=== PATIENT | male | born 1930 | race Caucasian/White ===

== ENCOUNTER → 2017-03-13 | Outpatient (REF) | payer MEDICARE, OTHER ==
[2017-03-13 19:13] LABS: ALBUMIN 3.7 GM/DL (3.2-5.2); ALBUMIN/GLOBULIN RATIO 1.09 (1.00-1.93); ALKALINE PHOSPHATASE 63 U/L (45-117); ALT/SGPT 41 U/L (12-78); ANION GAP 6 MEQ/L (8-16); AST/SGOT 32 U/L (15-37); BILIRUBIN,TOTAL 0.4 MG/DL (0.2-1.0); BLOOD UREA NITROGEN 19 MG/DL (7-18); CALCIUM LEVEL 8.5 MG/DL (8.8-10.2); CARBON DIOXIDE LEVEL 29 MEQ/L (21-32); CHLORIDE LEVEL 106 MEQ/L (98-107); CREATININE FOR GFR 0.87 MG/DL (0.70-1.30); GLOMERULAR FILTRATION RATE > 60.0 (>35); GLUCOSE, FASTING 129 MG/DL (83-110); POTASSIUM SERUM 4.7 MEQ/L (3.5-5.1); SODIUM LEVEL 141 MEQ/L (136-145); TOTAL PROTEIN 7.1 GM/DL (6.4-8.2)
== END ==
LOC: M LABDRWCV 16:18
PROVIDERS: ATTEND Physician Assistant
DX: E78.00 Pure hypercholesterolemia, unspecified (principal); I10 Essential (primary) hypertension

== ENCOUNTER 2017-06-01 19:34 | Emergency (ER) | payer MEDICARE, BC, OTHER ==
[~2017-06-01] VITALS: Ht 175.3 cm; Wt 99.1 kg
[2017-06-01] MEDS ORDERED: LYRI75CA (19:46)
[2017-06-01] MEDS ORDERED: ATOR1TAB19 (19:46)
[2017-06-01] MEDS ORDERED: RAMI25CA (19:46)
[2017-06-01] MEDS ORDERED: FLOM5CAP (19:46)
[2017-06-01] MEDS ORDERED: NITR0.4S14 SL (19:46)
[2017-06-01] MEDS ORDERED: FINA5TAB2 (19:46)
[2017-06-01] MEDS ORDERED: CARV12.5 (19:46)
[2017-06-01] MEDS ORDERED: BENA25TA10 PO (22:57)
--- NOTE | 2017-06-01 23:00 | REPUSA ---
Clinical history: Pain, swelling. Findings: The right common femoral, superficial femoral, popliteal, and other deep venous structures compress normally and demonstrate normal color Doppler flow. Normal venous waveforms with augmentatio n are seen. Impression: No evidence of deep vein thrombosis in the right femoral popliteal venous system.
[2017-06-01 23:20] VITALS: BP 132/73
== END 2017-06-01 23:21 | disposition home or self-care (01) ==
LOC: M ED 19:34
DX: R22.41 Localized swelling, mass and lump, right lower limb (principal); I25.10 Atherosclerotic heart disease of native coronary artery without angina pectoris; I10 Essential (primary) hypertension; Z91.030 Bee allergy status; Z96.81 Presence of artificial skin; Z87.891 Personal history of nicotine dependence; Z79.899 Other long term (current) drug therapy

== ENCOUNTER → 2017-09-22 | Outpatient (REF) | payer MEDICARE, BC, OTHER ==
[~2017-09-22] MED LIST: ATOR1TAB19; BENA25TA10 PO; CARV12.5; FINA5TAB2; FLOM5CAP; LYRI75CA; NITR0.4S14 SL; RAMI25CA
[2017-09-22 20:16] LABS: ALBUMIN 3.8 GM/DL (3.2-5.2); ALBUMIN/GLOBULIN RATIO 1.09 (1.00-1.93); ALKALINE PHOSPHATASE 61 U/L (45-117); ALT/SGPT 36 U/L (12-78); ANION GAP 5 MEQ/L (8-16); AST/SGOT 24 U/L (7-37); BILIRUBIN,TOTAL 0.5 MG/DL (0.2-1.0); BLOOD UREA NITROGEN 19 MG/DL (7-18); CALCIUM LEVEL 8.9 MG/DL (8.8-10.2); CARBON DIOXIDE LEVEL 30 MEQ/L (21-32); CHLORIDE LEVEL 105 MEQ/L (98-107); CHOLESTEROL LEVEL 135 MG/DL (<200); GLOMERULAR FILTRATION RATE > 60.0 (>35); GLUCOSE, FASTING 99 MG/DL (83-110); POTASSIUM SERUM 4.9 MEQ/L (3.5-5.1); SODIUM LEVEL 140 MEQ/L (136-145); TOTAL PROTEIN 7.3 GM/DL (6.4-8.2); TRIGLYCERIDES LEVEL 161 MG/DL (<150)
[2017-09-22 20:40] LABS: MEAN CORPUSCULAR HEMOGLOBIN 32.2 pg (27.0-33.0); MEAN CORPUSCULAR HGB CONC 31.9 g/dl (32.0-36.5); MEAN CORPUSCULAR VOLUME 100.9 fl (80.0-96.0); PLATELET COUNT, AUTOMATED 227 10^3/uL (150-450); RED CELL DISTRIBUTION WIDTH 13.3 % (11.5-14.5); WHITE BLOOD COUNT 5.1 10^3/uL (4.0-10.0)
== END ==
LOC: M LAB REF 17:22
PROVIDERS: ATTEND Physician Assistant
DX: I25.10 Atherosclerotic heart disease of native coronary artery without angina pectoris (principal); I10 Essential (primary) hypertension; E78.00 Pure hypercholesterolemia, unspecified

== ENCOUNTER → 2018-03-10 | Outpatient (REF) | payer MEDICARE, OTHER ==
[2018-03-10 17:05] LABS: BASO % 0.4 % (0.0-1.0); EOS # 0.1 10^3/uL (0.0-0.50); EOS % 2.3 % (0.0-3.0); HEMATOCRIT 40.6 % (42.0-52.0); HEMOGLOBIN 13.3 g/dl (13.5-17.5); IMMATURE GRANULOCYTE % 0.2 % (0-3.0); LYMPH # 1.4 10^3/uL (1.5-4.5); LYMPH % 29.6 % (24.0-44.0); MEAN CORPUSCULAR HEMOGLOBIN 32.8 pg (27.0-33.0); MEAN CORPUSCULAR HGB CONC 32.8 g/dl (32.0-36.5); MONO # 0.7 10^3/uL (0.0-0.8); MONO % 14.3 % (0.0-5.0); NEUTROPHILS # 2.5 10^3/uL (1.8-7.7); NEUTROPHILS % 53.2 % (36.0-66.0); PLATELET COUNT, AUTOMATED 250 10^3/uL (150-450); RED BLOOD COUNT 4.06 10^6/uL (4.30-6.10); RED CELL DISTRIBUTION WIDTH 13.6 % (11.5-14.5); WHITE BLOOD COUNT 4.8 10^3/uL (4.0-10.0)
[2018-03-10 18:15] LABS: ESTIMATED AVERAGE GLUCOSE 117 MG/DL (60-110); HEMOGLOBIN A1c 5.7 %
[2018-03-10 18:26] LABS: ALBUMIN 3.6 GM/DL (3.2-5.2); ALBUMIN/GLOBULIN RATIO 1.03 (1.00-1.93); ALKALINE PHOSPHATASE 56 U/L (45-117); ALT/SGPT 28 U/L (12-78); ANION GAP 6 MEQ/L (8-16); AST/SGOT 23 U/L (7-37); BILIRUBIN,TOTAL 0.5 MG/DL (0.2-1.0); BLOOD UREA NITROGEN 15 MG/DL (7-18); CALCIUM LEVEL 8.3 MG/DL (8.8-10.2); CARBON DIOXIDE LEVEL 27 MEQ/L (21-32); CHLORIDE LEVEL 108 MEQ/L (98-107); CHOLESTEROL LEVEL 134 MG/DL (<200); CHOLESTEROL RISK RATIO 3.941 (<5); GLOMERULAR FILTRATION RATE > 60.0 (>35); GLUCOSE, FASTING 107 MG/DL (70-100); HDL CHOLESTEROL 34 MG/DL (>40); NON-HDL-C 100 MG/DL; POTASSIUM SERUM 4.2 MEQ/L (3.5-5.1); SODIUM LEVEL 141 MEQ/L (136-145); TOTAL PROTEIN 7.1 GM/DL (6.4-8.2); TRIGLYCERIDES LEVEL 190 MG/DL (<150)
== END ==
LOC: M SFHCCAPE 09:42
DX: I10 Essential (primary) hypertension (principal); R73.09 Other abnormal glucose; K59.00 Constipation, unspecified
CPT/HCPCS: 84443

== ENCOUNTER → 2018-04-01 | Outpatient (REF) | payer MEDICARE, OTHER ==
[2018-04-01 16:51] LABS: HEMATOCRIT 39.4 % (42.0-52.0); MEAN CORPUSCULAR HEMOGLOBIN 32.9 pg (27.0-33.0); MEAN CORPUSCULAR VOLUME 99.7 fl (80.0-96.0); RED BLOOD COUNT 3.95 10^6/uL (4.30-6.10); RED CELL DISTRIBUTION WIDTH 13.5 % (11.5-14.5); WHITE BLOOD COUNT 6.9 10^3/uL (4.0-10.0)
[2018-04-01 16:52] LABS: BASO % 0.1 % (0.0-1.0); EOS # 0.2 10^3/uL (0.0-0.50); EOS % 2.3 % (0.0-3.0); IMMATURE GRANULOCYTE % 0.1 % (0-3.0); LYMPH # 1.4 10^3/uL (1.5-4.5); LYMPH % 20.5 % (24.0-44.0); MONO % 14.1 % (0.0-5.0); NEUTROPHILS # 4.3 10^3/uL (1.8-7.7); NEUTROPHILS % 62.9 % (36.0-66.0); PLATELET COUNT, AUTOMATED 237 10^3/uL (150-450)
[2018-04-01 17:35] LABS: APPEARANCE, URINE HAZY (CLEAR); BACTERIA, URINE AUTO NEGATIVE (NEGATIVE); BILIRUBIN, URINE AUTO NEGATIVE (NEGATIVE); BLOOD, URINE BLOOD NEGATIVE (NEGATIVE); CALCIUM OXALATE CRYSTALS SMALL; COLOR, URINE YELLOW (YELLOW); GLUCOSE, URINE (UA) AUTO NEGATIVE (NEGATIVE); KETONE, URINE AUTO NEGATIVE (NEGATIVE); LEUKOCYTE ESTERASE, URINE AUTO TRACE (NEGATIVE); MUCUS, URINE SMALL (NEGATIVE); NITRITE, URINE AUTO NEGATIVE (NEGATIVE); PROTEIN, URINE AUTO NEGATIVE (NEGATIVE); RBC, URINE AUTO 1 /HPF (0-3); SPECIFIC GRAVITY URINE AUTO 1.021 (1.002-1.035); SQUAMOUS EPITHELIAL CELL UR AU 1 /HPF (0-6); UROBILINOGEN, URINE AUTO 0.2 mg/dL (0.0-2.0); WBC, URINE AUTO 4 /HPF (0-3)
[2018-04-01 18:25] LABS: ALBUMIN 3.4 GM/DL (3.2-5.2); ALBUMIN/GLOBULIN RATIO 0.97 (1.00-1.93); ALKALINE PHOSPHATASE 46 U/L (45-117); ANION GAP 7 MEQ/L (8-16); AST/SGOT 37 U/L (7-37); BILIRUBIN,TOTAL 0.5 MG/DL (0.2-1.0); BLOOD UREA NITROGEN 21 MG/DL (7-18); CALCIUM LEVEL 8.9 MG/DL (8.8-10.2); CARBON DIOXIDE LEVEL 26 MEQ/L (21-32); CHLORIDE LEVEL 109 MEQ/L (98-107); CPK CREATINE PHOSPHOKINASE 214 U/L (39-308); CREATININE FOR GFR 0.85 MG/DL (0.70-1.30); GLOMERULAR FILTRATION RATE > 60.0 (>35); GLUCOSE, FASTING 88 MG/DL (70-100); POTASSIUM SERUM 4.5 MEQ/L (3.5-5.1); SODIUM LEVEL 142 MEQ/L (136-145); TOTAL PROTEIN 6.9 GM/DL (6.4-8.2); TROPONIN I < 0.02 NG/ML (< 0.10)
[2018-04-01 18:29] LABS: ALT/SGPT 40 U/L (12-78); CK-MB VALUE MASS 4.2 NG/ML (<3.6); MB/CK RELATIVE INDEX 1.96 (< OR =4); MYOGLOBIN 178 NG/ML (16-116)
== END ==
LOC: M SFHCCAPE 12:20
DX: R55 Syncope and collapse (principal); R13.10 Dysphagia, unspecified; R19.8 Other specified symptoms and signs involving the digestive system and abdomen; Z79.899 Other long term (current) drug therapy
CPT/HCPCS: 82550

== ENCOUNTER → 2018-04-22 | Outpatient (CLI) | payer MEDICARE, BC, OTHER | LOC: M RAD 14:52 | DX: R55 Syncope and collapse (principal) | CPT/HCPCS: 93880 ==

== ENCOUNTER 2018-05-04 10:06 | Day surgery (SDC) | payer MEDICARE, BC, OTHER ==
[2018-05-04] MEDS ORDERED: LIDOCAINE 1% MDV 20ML VIAL SQ (10:30)
[2018-05-04] MEDS ORDERED: ceFAZolin 2 GM/D5W 50 ML IV BAG (J0690 PER 500MG) As Ordered (10:39)
[2018-05-04] MEDS ORDERED: fentaNYL 100 MCG/2 ML INJECTION (J3010) As Ordered (11:09)
[2018-05-04] MEDS ORDERED: LIDOCAINE 2% INJ 100 MG/5 ML SDV (FOR ANES.) As Ordered (11:09)
[2018-05-04] MEDS ORDERED: ONDANSETRON 4MG/2ML VIAL (J2405) As Ordered (11:09)
[2018-05-04] MEDS ORDERED: PROPOFOL 200 MG/20 ML VIAL As Ordered (11:09)
[2018-05-04] MEDS ORDERED: MIDAZOLAM INJ 2 MG/2 ML VIAL (J2250) As Ordered (11:09)
[2018-05-04] MEDS: LR 1,000 ML IV (11:36)
[2018-05-04] MEDS: MUPIROCIN 2% OINT 22 GM TUBE As Ordered ×2 (14:59→15:03)
[2018-05-04] MEDS: VANCOMYCIN 1000 MG/20 ML VIAL (J3370) As Ordered (14:59)
[2018-05-04] MEDS: ISOVUE-300 61% 50ML VIAL (Q9967) As Ordered (15:00)
[2018-05-04] MEDS: LIDOCAINE 1% SDV INJ 30 ML VIAL As Ordered (15:04)
[2018-05-04] MEDS: NEOSPORIN TOP OINT 15GM As Ordered (15:04)
[2018-05-04] MEDS ORDERED: ONDANSETRON 4MG/2ML VIAL (J2405) IV (15:45)
[2018-05-04] MEDS ORDERED: PERCOCET 5MG/325MG TAB PO (15:45)
[2018-05-04] MEDS ORDERED: NITROGLYCERIN 0.4 MG SUBL TABLET SL (16:00)
[2018-05-04] MEDS ORDERED: SENNA 8.6 MG TAB (SENOKOT) PO (16:00)
[2018-05-04] MEDS ORDERED: DOCUSATE SODIUM 100 MG CAP PO (16:00)
[2018-05-04] MEDS: ATORVASTATIN 10 MG TAB PO (16:50)
[2018-05-04] MEDS: TAMSULOSIN 0.4 MG CAP PO (16:50)
[2018-05-04] MEDS: ACETAMINOPHEN TAB 650MG DOSE (2X325MG) PO (16:50)
[2018-05-04] MEDS: ASPIRIN 81 MG ENTERIC TAB PO (16:50)
[2018-05-04] MEDS: FINASTERIDE 5 MG TAB PO (16:50)
[2018-05-04] MEDS: MULTIVITAMINS/MINERALS THERAP 1 TAB PO (16:50)
[2018-05-04] MEDS ORDERED: SLF 3 ML SYR IV (17:00)
[2018-05-04] MEDS: ASCORBIC ACID 250 MG TAB PO (21:11)
[2018-05-04] MEDS: SLF 3 ML SYR IV (21:12)
[2018-05-04] MEDS: PREGABALIN 75 MG CAP(LYRICA) PO (21:12)
[2018-05-05] MEDS: SLF 3 ML SYR IV ×2 (06:00→14:00)
[2018-05-05] MEDS: PREGABALIN 75 MG CAP(LYRICA) PO (08:38)
[2018-05-05] MEDS: MULTIVITAMINS/MINERALS THERAP 1 TAB PO (08:38)
[2018-05-05] MEDS: ATORVASTATIN 10 MG TAB PO (08:38)
[2018-05-05] MEDS: FINASTERIDE 5 MG TAB PO (08:38)
[2018-05-05] MEDS: TAMSULOSIN 0.4 MG CAP PO (08:38)
[2018-05-05] MEDS: ACETAMINOPHEN TAB 650MG DOSE (2X325MG) PO ×2 (08:38→15:19)
[2018-05-05] MEDS: ASCORBIC ACID 250 MG TAB PO (08:38)
[2018-05-05] MEDS: ASPIRIN 81 MG ENTERIC TAB PO (08:38)
== END 2018-05-05 15:30 | disposition home or self-care (01) ==
LOC: M SDC 10:06 → M PCU 16:02
DX: I44.2 Atrioventricular block, complete (principal); I25.10 Atherosclerotic heart disease of native coronary artery without angina pectoris; I10 Essential (primary) hypertension; E78.5 Hyperlipidemia, unspecified; J44.9 Chronic obstructive pulmonary disease, unspecified; N40.0 Benign prostatic hyperplasia without lower urinary tract symptoms; Z79.82 Long term (current) use of aspirin; Z91.030 Bee allergy status; Z87.891 Personal history of nicotine dependence; Z79.899 Other long term (current) drug therapy
CPT/HCPCS: 33208

== ENCOUNTER → 2019-03-11 | Outpatient (REF) | payer MEDICARE, OTHER ==
[~2019-03-11] MED LIST changes: +ASPI1TAB15 PO; -ATOR1TAB19; +ATOR1TAB19 PO; +DULC5TAB PO; +FINA5TAB2 PO; +FLOM0.4C39; -FLOM5CAP; +MULTCAP PO; +RAMI1CAP22; -RAMI25CA; +VITA500C24 PO
[2019-03-11 16:57] LABS: BASO % 0.2 % (0.0-1.0); EOS # 0.1 10^3/uL (0.0-0.50); EOS % 2.4 % (0.0-3.0); HEMATOCRIT 43.5 % (42.0-52.0); HEMOGLOBIN 13.9 g/dl (13.5-17.5); LYMPH # 1.5 10^3/uL (1.5-4.5); MEAN CORPUSCULAR HEMOGLOBIN 31.6 pg (27.0-33.0); MEAN CORPUSCULAR VOLUME 98.9 fl (80.0-96.0); MONO # 0.8 10^3/uL (0.0-0.8); MONO % 15.2 % (0.0-5.0); NEUTROPHILS # 2.6 10^3/uL (1.8-7.7); NEUTROPHILS % 52.2 % (36.0-66.0); PLATELET COUNT, AUTOMATED 262 10^3/uL (150-450); WHITE BLOOD COUNT 4.9 10^3/uL (4.0-10.0)
[2019-03-11 17:18] LABS: ALBUMIN 3.8 GM/DL (3.2-5.2); ALT/SGPT 39 U/L (12-78); BILIRUBIN,TOTAL 0.5 MG/DL (0.2-1.0); BLOOD UREA NITROGEN 24 MG/DL (7-18); CALCIUM LEVEL 8.7 MG/DL (8.8-10.2); CARBON DIOXIDE LEVEL 28 MEQ/L (21-32); CHLORIDE LEVEL 107 MEQ/L (98-107); CHOLESTEROL LEVEL 148 MG/DL (<200); CREATININE FOR GFR 0.96 MG/DL (0.70-1.30); GLOMERULAR FILTRATION RATE > 60.0 (>35); GLUCOSE, FASTING 108 MG/DL (70-100); HDL CHOLESTEROL 37 MG/DL (>40); LDL CHOLESTEROL 74 MG/DL (<100); NON-HDL-C 111 MG/DL; POTASSIUM SERUM 4.1 MEQ/L (3.5-5.1); SODIUM LEVEL 141 MEQ/L (136-145); TOTAL PROTEIN 7.1 GM/DL (6.4-8.2); TRIGLYCERIDES LEVEL 183 MG/DL (<150)
[2019-03-11 17:41] LABS: HEMOGLOBIN A1c 5.9 %
== END ==
LOC: M SFHCCAPE 09:47
PROVIDERS: ATTEND Physician Assistant
DX: I10 Essential (primary) hypertension (principal); R73.09 Other abnormal glucose; N40.0 Benign prostatic hyperplasia without lower urinary tract symptoms
CPT/HCPCS: 80053; 80061; 83036; 84443; 85025; G0103

== ENCOUNTER → 2019-09-13 | Outpatient (REF) | payer MEDICARE, OTHER ==
[2019-09-13 16:55] LABS: BASO % 0.4 % (0.0-1.0); EOS # 0.1 10^3/uL (0.0-0.5); EOS % 2.1 % (0.0-3.0); HEMATOCRIT 43.5 % (42.0-52.0); HEMOGLOBIN 14.1 g/dl (13.5-17.5); LYMPH # 1.3 10^3/uL (1.5-5.0); LYMPH % 25.8 % (24.0-44.0); MEAN CORPUSCULAR HEMOGLOBIN 32.6 pg (27.0-33.0); MEAN CORPUSCULAR HGB CONC 32.4 g/dl (32.0-36.5); MEAN CORPUSCULAR VOLUME 100.7 fl (80.0-96.0); MONO # 0.7 10^3/uL (0.0-0.8); MONO % 13.6 % (0.0-5.0); NEUTROPHILS % 57.9 % (36.0-66.0); PLATELET COUNT, AUTOMATED 245 10^3/uL (150-450); RED BLOOD COUNT 4.32 10^6/uL (4.30-6.10); WHITE BLOOD COUNT 5.2 10^3/uL (4.0-10.0)
[2019-09-13 17:00] LABS: ALBUMIN 3.9 GM/DL (3.2-5.2); ALT/SGPT 30 U/L (12-78); BILIRUBIN,TOTAL 0.7 MG/DL (0.2-1.0); BLOOD UREA NITROGEN 15 MG/DL (7-18); CALCIUM LEVEL 8.6 MG/DL (8.8-10.2); CARBON DIOXIDE LEVEL 28 MEQ/L (21-32); CHLORIDE LEVEL 107 MEQ/L (98-107); CHOLESTEROL LEVEL 137 MG/DL (<200); CHOLESTEROL RISK RATIO 3.186 (<5); CREATININE FOR GFR 0.93 MG/DL (0.70-1.30); GLOMERULAR FILTRATION RATE > 60.0 (>35); GLUCOSE, FASTING 70 MG/DL (70-100); HDL CHOLESTEROL 43 MG/DL (>40); LDL CHOLESTEROL 68 MG/DL (<100); NON-HDL-C 94 MG/DL; SODIUM LEVEL 143 MEQ/L (136-145); TOTAL PROTEIN 7.5 GM/DL (6.4-8.2); TRIGLYCERIDES LEVEL 129 MG/DL (<150)
[2019-09-13 17:19] LABS: HEMOGLOBIN A1c 5.8 %
== END ==
LOC: M SFHCCAPE 09:47
PROVIDERS: ATTEND Physician Assistant
DX: I10 Essential (primary) hypertension (principal); R73.09 Other abnormal glucose

== ENCOUNTER → 2020-08-04 | Outpatient (REF) | payer MEDICARE, OTHER ==
[~2020-08-04] MED LIST changes: +ASPI-546 PO; -ASPI1TAB15 PO
[2020-08-04 16:36] LABS: APPEARANCE, URINE HAZY (CLEAR); BACTERIA, URINE AUTO NEGATIVE (NEGATIVE); BILIRUBIN, URINE AUTO NEGATIVE (NEGATIVE); BLOOD, URINE BLOOD NEGATIVE (NEGATIVE); CALCIUM OXALATE CRYSTALS MODERATE; COLOR, URINE YELLOW (YELLOW); GLUCOSE, URINE (UA) AUTO NEGATIVE (NEGATIVE); KETONE, URINE AUTO NEGATIVE (NEGATIVE); LEUKOCYTE ESTERASE, URINE AUTO TRACE (NEGATIVE); MUCUS, URINE SMALL (NEGATIVE); NITRITE, URINE AUTO NEGATIVE (NEGATIVE); PROTEIN, URINE AUTO NEGATIVE (NEGATIVE); RBC, URINE AUTO 1 /HPF (0-3); SPECIFIC GRAVITY URINE AUTO 1.023 (1.002-1.035); SQUAMOUS EPITHELIAL CELL UR AU 1 /HPF (0-6); UROBILINOGEN, URINE AUTO 0.2 mg/dL (0.0-2.0); WBC, URINE AUTO 4 /HPF (0-3)
[2020-08-04 16:44] LABS: BASO % 0.5 % (0.0-1.0); EOS # 0.2 10^3/uL (0.0-0.5); EOS % 3.1 % (0.0-3.0); HEMATOCRIT 40.9 % (42.0-52.0); HEMOGLOBIN 13.3 g/dl (13.5-17.5); LYMPH # 1.4 10^3/uL (1.5-5.0); MEAN CORPUSCULAR HEMOGLOBIN 31.9 pg (27.0-33.0); MEAN CORPUSCULAR HGB CONC 32.5 g/dl (32.0-36.5); MEAN CORPUSCULAR VOLUME 98.1 fl (80.0-96.0); MONO # 0.8 10^3/uL (0.0-0.8); MONO % 14.7 % (0.0-5.0); NEUTROPHILS # 3.2 10^3/uL (1.5-8.5); NEUTROPHILS % 56.7 % (36.0-66.0); PLATELET COUNT, AUTOMATED 236 10^3/uL (150-450); RED BLOOD COUNT 4.17 10^6/uL (4.30-6.10); WHITE BLOOD COUNT 5.6 10^3/uL (4.0-10.0)
[2020-08-04 16:51] LABS: ALBUMIN 3.5 GM/DL (3.2-5.2); ALT/SGPT 31 U/L (12-78); BILIRUBIN,TOTAL 0.6 MG/DL (0.2-1.0); BLOOD UREA NITROGEN 20 MG/DL (7-18); CARBON DIOXIDE LEVEL 28 MEQ/L (21-32); CHLORIDE LEVEL 109 MEQ/L (98-107); CHOLESTEROL LEVEL 115 MG/DL (<200); CHOLESTEROL RISK RATIO 3.108 (<5); CREATININE FOR GFR 0.78 MG/DL (0.70-1.30); FREE T4 0.84 NG/DL (0.76-1.46); GLOMERULAR FILTRATION RATE > 60.0 (>35); GLUCOSE, FASTING 88 MG/DL (70-100); HDL CHOLESTEROL 37 MG/DL (>40); LDL CHOLESTEROL 55 MG/DL (<100); NON-HDL-C 78 MG/DL; POTASSIUM SERUM 4.6 MEQ/L (3.5-5.1); SODIUM LEVEL 140 MEQ/L (136-145); THYROID STIMULATING HORMONE 0.775 uIU/ML (0.358-3.740); TOTAL PROTEIN 6.8 GM/DL (6.4-8.2); TRIGLYCERIDES LEVEL 113 MG/DL (<150)
[2020-08-04 16:57] LABS: FOLATE 17.1 NG/ML (>5.4); VITAMIN B12 LEVEL 485 PG/ML (247-911)
[2020-08-04 16:59] LABS: HEMOGLOBIN A1c 5.4 %
== END ==
LOC: M SFHCCLAY 16:09
PROVIDERS: ATTEND Physician Assistant
DX: D75.89 Other specified diseases of blood and blood-forming organs (principal); R73.01 Impaired fasting glucose; R63.4 Abnormal weight loss; Z12.5 Encounter for screening for malignant neoplasm of prostate; E78.00 Pure hypercholesterolemia, unspecified
CPT/HCPCS: 36415; 80053; 80061; 81001; 82607; 82746; 83036; 84439; 84443; 85025; 87086; G0103